=== PATIENT | female | born 1970 | race Two or more races ===

== ENCOUNTER 2022-09-10 09:05 | Emergency (ER) | payer MEDICAID, OTHER ==
[~2022-09-10] VITALS: Ht 154.9 cm; Wt 80.0 kg
[2022-09-10 09:58] VITALS: BP 118/73; PULSE 90; RESP 18; O2SAT 97
[2022-09-10] MEDS ORDERED: IBUP-1456 PO (10:43)
== END 2022-09-10 10:50 | disposition home or self-care (01) ==
LOC: EDBD 09:05 → ER 09:08
DX: S16.1XXA Strain of muscle, fascia and tendon at neck level, initial encounter (principal); S20.211A Contusion of right front wall of thorax, initial encounter; E78.5 Hyperlipidemia, unspecified; V43.62XA Car passenger injured in collision with other type car in traffic accident, initial encounter; Y93.89 Activity, other specified; Y92.89 Other specified places as the place of occurrence of the external cause; Y99.8 Other external cause status
CPT/HCPCS: 71046; 72040